=== PATIENT | male | born 1995 | race Caucasian/White ===

== ENCOUNTER 2019-09-23 18:09 | Inpatient (IN) | payer BC, OTHER ==
[~2019-09-23] VITALS: Ht 182.9 cm; Wt 83.5 kg
[2019-09-23] MEDS ORDERED: ONDANSETRON HCL 4MG/2ML INJ IV STA (19:47)
[2019-09-23] MEDS ORDERED: SODIUM CHLORIDE 0.9% 1000ML BAG (SEPSIS BOLUS) IV ONE (20:00)
[2019-09-23 20:03] LABS: HEMATOCRIT. 52.2 % (42.0-52.0); HEMOGLOBIN. 17.5 g/dL (14.0-18.0); MEAN CORPUSCULAR HEMOGLOBIN 32.1 pg (28.0-32.0); MEAN CORPUSCULAR VOLUME 95.8 fL (80.0-94.0); MEAN PLATELET VOLUME 8.4 fl (7.4-10.4); PLATELET 352 x1000/uL (130-400); RED BLOOD CELL COUNT 5.45 mill/uL (4.7-6.1); RED CELL DISTRIBUTION WIDTH 12.4 % (11.6-14.6)
[2019-09-23 20:08] LABS: CHLORIDE 99 mEq/L (98-107)
[2019-09-23 20:11] LABS: ETHANOL BLOOD < 10 mg/dL; INR 1.1; PROTHROMBIN TIME 10.8 sec (9.6-11.0)
[2019-09-23 20:12] LABS: AMYLASE 207 IU/L (25-115)
[2019-09-23 20:18] LABS: PLATELET ESTIMATE NORMAL
[2019-09-23 20:19] LABS: BETA HYDROXYBUTYRATE 7.3 mMol/L (0.0-0.3)
[2019-09-23 20:27] LABS: BG BASE EXCESS -23.4 mmol/L (-2.0-2.0); BG DEOXYHEMOGLOBIN 2.2 % (0.0-5.0); BG FRACTION INSPIRED OXYGEN 21; BG HCO3 ACT 4.6 mmol/L (22.0-26.0); BG METHEMOGLOBIN 0.8 % (0.0-1.5); BG OXYGEN SATURATION 97.8 % (92.0-98.5); BG PCO2 16.1 mmHg (35.0-45.0); BG SAMPLE SITE RIGHT RADIAL; BG TOTAL HEMOGLOBIN 18.4 g/dL (12.0-18.0); BG VENT MODE NASAL CANNULA
[2019-09-23] MEDS ORDERED: INSULIN REGULAR (DRIP) 100 UNITS in SODIUM CHLORIDE 0.9% 100 ML IV NR (20:55)
[2019-09-23] MEDS ORDERED: SODIUM CHLORIDE 0.9% 1,000 ML IV STA (20:55)
[2019-09-23 20:59] LABS: CLARITY URINE CLEAR (CLEAR); COLOR URINE YELLOW (YELLOW); KETONES URINE 4+ (NEGATIVE); LEUKOCYTE ESTERASE URINE NEGATIVE (NEGATIVE); NITRITE URINE NEGATIVE (NEGATIVE); OCCULT BLOOD URINE NEGATIVE (NEGATIVE); PROTEIN URINE 1+ (NEGATIVE); SPECIFIC GRAVITY URINE 1.029 (1.005-1.030); UROBILINOGEN URINE 0.2 E.U./dL (0.2-1.0)
[2019-09-23] MEDS ORDERED: LEVOFLOXACIN 500MG PREMIX 100 ML IV ONE (21:00)
[2019-09-23 21:13] LABS: *AMPHETAMINES SCREEN URINE NEGATIVE (NEGATIVE); *BARBITURATES SCREEN URINE NEGATIVE (NEGATIVE); *BENZODIAZEPINES SCREEN URINE NEGATIVE (NEGATIVE); *COCAINE SCREEN URINE NEGATIVE (NEGATIVE); METHADONE URINE SCREEN NEGATIVE (NEGATIVE); OPIATES URINE SCREEN NEGATIVE (NEGATIVE)
[2019-09-23 21:14] LABS: CANNABINOID URINE SCREEN NEGATIVE (NEGATIVE); PHENCYCLIDINE URINE SCREEN NEGATIVE (NEGATIVE)
[2019-09-23 22:44] LABS: CHLORIDE 110 mEq/L (98-107)
[2019-09-23] MEDS ORDERED: SODIUM CHLORIDE 0.9% 1,000 ML IV ONE (23:25)
[2019-09-24 01:05] LABS: CHLORIDE 116 mEq/L (98-107)
[2019-09-24 01:14] LABS: PHOSPHORUS 3.1 mg/dL (2.5-4.9)
[2019-09-24 02:58] LABS: CHLORIDE 115 mEq/L (98-107)
[2019-09-24] MEDS ORDERED: DEXT 5%/0.45% NACL KCL 20MEQ/L 1,000 ML IV ONE ×2 (03:00→12:45)
[2019-09-24 03:04] LABS: PHOSPHORUS 1.9 mg/dL (2.5-4.9)
[2019-09-24] MEDS ORDERED: ONDANSETRON HCL 4MG/2ML INJ IV PRN (12:15)
[2019-09-24] MEDS ORDERED: PANTOPRAZOLE SODIUM 40 MG/VIAL IV NR (12:15)
[2019-09-24] MEDS ORDERED: IPRATROPIUM/ALBUTEROL 0.5-3(2.5)MG/3ML NEB HHN PRN (12:15)
[2019-09-24] MEDS ORDERED: MORPHINE SULFATE 2 MG/ML CPJ (NOT FOR IM USE) IV PRN (12:15)
[2019-09-24] MEDS ORDERED: INSULIN REGULAR (DRIP) 100 UNITS in SODIUM CHLORIDE 0.9% 100 ML IV SCH (12:15)
[2019-09-24] MEDS: ACETAMINOPHEN 325MG TABLET PO PRN ×2 (14:02→20:40)
[2019-09-24] MEDS ORDERED: ENOXAPARIN 40MG/0.4ML SYR SUBCUT NR (14:30)
[2019-09-24 15:49] LABS: BASOPHILS % 0.3 % (0.0-2.0); HEMOGLOBIN. 14.5 g/dL (14.0-18.0); MEAN CORPUSCULAR HEMOGLOBIN 32.1 pg (28.0-32.0); MEAN CORPUSCULAR VOLUME 93.3 fL (80.0-94.0); MEAN PLATELET VOLUME 6.8 fl (7.4-10.4); MONOCYTES % 7.3 % (2.0-8.0); NEUTROPHILS % 83.4 % (40.0-76.0); PLATELET 246 x1000/uL (130-400); RED CELL DISTRIBUTION WIDTH 11.9 % (11.6-14.6)
[2019-09-24 15:54] LABS: CHLORIDE 112 mEq/L (98-107)
[2019-09-24 16:02] LABS: BETA HYDROXYBUTYRATE 4.4 mMol/L (0.0-0.3)
[2019-09-24] MEDS: SODIUM CHLORIDE 0.45% 1,000 ML IV SCH (18:41)
[2019-09-24] MEDS ORDERED: DEXTROSE 50% WATER 50ML SYRINGE IV PRN (19:15)
[2019-09-24] MEDS ORDERED: SODIUM BICARBONATE 8.4% 1 MEQ/ML 50ML SYR IV ONE (19:15)
[2019-09-24] MEDS: BLOOD SUGAR DIAGNOSTIC STRIP TEST SCH (21:00)
[2019-09-24] MEDS: INSULIN LISPRO 100 UNITS/ML SUBCUT SCH (21:36)
[2019-09-25] MEDS: SODIUM CHLORIDE 0.45% 1,000 ML IV SCH ×2 (05:25→23:35)
[2019-09-25] MEDS: INSULIN LISPRO 100 UNITS/ML SUBCUT SCH ×4 (08:38→21:01)
[2019-09-25 10:02] VITALS: BP 120/85
[2019-09-25] MEDS ORDERED: INFLUENZA VIRUS VACCINE(AFLURIA) 0.5ML SYR IM ONE (11:15)
[2019-09-25] MEDS: BLOOD SUGAR DIAGNOSTIC STRIP TEST SCH ×3 (11:50→21:03)
[2019-09-25 12:00] VITALS: BP 116/78
[2019-09-25 13:08] LABS: BASOPHILS % 0.2 % (0.0-2.0); HEMOGLOBIN. 15.1 g/dL (14.0-18.0); LYMPHOCYTES % 13.7 % (20.0-50.0); MEAN CORPUSCULAR VOLUME 95.1 fL (80.0-94.0); MEAN PLATELET VOLUME 7.1 fl (7.4-10.4); MONOCYTES % 6.1 % (2.0-8.0); PLATELET 287 x1000/uL (130-400); RED BLOOD CELL COUNT 4.73 mill/uL (4.7-6.1); RED CELL DISTRIBUTION WIDTH 12.4 % (11.6-14.6)
[2019-09-25 13:18] LABS: CHLORIDE 109 mEq/L (98-107)
[2019-09-25] MEDS ORDERED: SODIUM BICARBONATE 50 MEQ in SODIUM CHLORIDE 0.45% 1,000 ML IV SCH (13:45)
[2019-09-25 14:00] VITALS: BP 132/65
[2019-09-25] MEDS ORDERED: SODIUM BICARBONATE 8.4% 1 MEQ/ML 50ML SYR IV NR (14:30)
[2019-09-25] MEDS: ENOXAPARIN 40MG/0.4ML SYR SUBCUT SCH (19:11)
[2019-09-25 20:00] VITALS: BP 126/75
[2019-09-25] MEDS: INSULIN GLARGINE UD 100 UNITS/ML SYR SUBCUT SCH (21:02)
[2019-09-25 22:00] VITALS: BP 109/68
[2019-09-25 23:45] LABS: CHLORIDE 109 mEq/L (98-107)
[2019-09-25 23:53] LABS: BETA HYDROXYBUTYRATE 3.7 mMol/L (0.0-0.3)
[2019-09-26] VITALS (12 sets, daily range): BP systolic 98–125; BP diastolic 61–79
[2019-09-26] MEDS: BLOOD SUGAR DIAGNOSTIC STRIP TEST SCH ×4 (06:10→21:32)
[2019-09-26 07:15] LABS: CHLORIDE 109 mEq/L (98-107)
[2019-09-26 07:28] LABS: BASOPHILS % 0.4 % (0.0-2.0); EOSINOPHILS % 0.9 % (0.0-5.0); HEMATOCRIT. 36.7 % (42.0-52.0); HEMOGLOBIN. 13.2 g/dL (14.0-18.0); LYMPHOCYTES % 38.4 % (20.0-50.0); MEAN CORPUSCULAR VOLUME 91.9 fL (80.0-94.0); MONOCYTES % 11.8 % (2.0-8.0); NEUTROPHILS % 48.5 % (40.0-76.0); PLATELET 212 x1000/uL (130-400); RED BLOOD CELL COUNT 3.99 mill/uL (4.7-6.1); RED CELL DISTRIBUTION WIDTH 11.9 % (11.6-14.6)
[2019-09-26] MEDS: ENOXAPARIN 40MG/0.4ML SYR SUBCUT SCH (08:26)
[2019-09-26] MEDS: INSULIN LISPRO 100 UNITS/ML SUBCUT SCH ×4 (08:28→21:32)
[2019-09-26] MEDS ORDERED: POTASSIUM CHLORIDE 20MEQ TABLET SR PO SCH (09:00)
[2019-09-26] MEDS: INSULIN GLARGINE UD 100 UNITS/ML SYR SUBCUT SCH ×2 (10:14→21:31)
[2019-09-26] MEDS: SODIUM CHLORIDE 0.45% 1,000 ML IV SCH ×2 (10:18)
[2019-09-26 13:37] LABS: PHOSPHORUS 1.7 mg/dL (2.5-4.9)
[2019-09-26] MEDS ORDERED: POTASSIUM CHLORIDE 20MEQ TABLET SR PO NR (15:45)
[2019-09-26] MEDS ORDERED: MAGNESIUM 2 G PREMIX 50 ML IV NR (17:30)
[2019-09-26] MEDS ORDERED: SODIUM PHOS,M-BASIC-D-BASIC 30 MM in DEXT 5% WATER 500 ML IV NR (17:30)
[2019-09-27] VITALS: BP 120/81
[2019-09-27 02:00] VITALS: BP 112/67
[2019-09-27 04:00] VITALS: BP 109/70
[2019-09-27 05:30] VITALS: BP 110/75
[2019-09-27] MEDS: BLOOD SUGAR DIAGNOSTIC STRIP TEST SCH (05:45)
[2019-09-27 09:48] LABS: BG BASE EXCESS -8.2 mmol/L (-2.0-2.0); BG CARBOXYHEMOGLOBIN 0.5 % (0.5-1.5); BG DEOXYHEMOGLOBIN 2.1 % (0.0-5.0); BG FRACTION INSPIRED OXYGEN 21; BG HCO3 ACT 16.2 mmol/L (22.0-26.0); BG METHEMOGLOBIN 0.1 % (0.0-1.5); BG OXYGEN SATURATION 97.9 % (92.0-98.5); BG OXYHEMOGLOBIN 97.3 % (94.0-97.0); BG PCO2 30.5 mmHg (35.0-45.0); BG PH 7.344 (7.350-7.450); BG PO2 107.4 mmHg (75.0-100.0); BG SAMPLE SITE RIGHT RADIAL; BG TOTAL HEMOGLOBIN 13.8 g/dL (12.0-18.0); BG VENT MODE ROOM AIR
== END 2019-09-27 06:10 | disposition home or self-care (01) | DRG 639 ==
LOC: ER 18:09 → EDBEDREQTM 21:39 → EDBEDREQ 21:39 → EDBEDREQSVC 09-24 18:40 → EDBEDREQDT 09-24 18:40 → EDBEDREQTM 09-24 18:40 → 3WST 09-24 21:34 → ENRESERV 09-25 08:15
PROVIDERS: ADMIT Ophthalmology; ATTEND Ophthalmology
DX: E11.10 Type 2 diabetes mellitus with ketoacidosis without coma (principal); E83.42 Hypomagnesemia; E83.39 Other disorders of phosphorus metabolism; E87.6 Hypokalemia; E78.00 Pure hypercholesterolemia, unspecified; Z79.4 Long term (current) use of insulin
CPT/HCPCS: 36415; 36600; 71045; 80048; 80053; 80305; 80320; 81003; 82010; 82150; 82375; 82805; 82962; 83036; 83605; 83735; 84100; 84145; 84484; 85025; 90686; 93005; 99291; C9113; J1650; J1815; J1956; J2270; J2405; J3475; J3490; J7030; J7050; J7060; G0480

== ENCOUNTER 2021-08-16 23:03 | Inpatient (IN) | payer BC, OTHER ==
[~2021-08-16] VITALS: Ht 165.1 cm; Wt 72.6 kg
[2021-08-16] MEDS ORDERED: ONDANSETRON HCL 4MG/2ML INJ IV STA (23:12)
[2021-08-16] MEDS ORDERED: SODIUM CHLORIDE 0.9% 1,000 ML IV ONE (23:15)
[2021-08-16 23:53] LABS: BASOPHILS % 0.2 % (0.0-2.0); EOSINOPHILS % 0.1 % (0.0-5.0); HEMATOCRIT. 46.2 % (42.0-52.0); HEMOGLOBIN. 16.1 g/dL (14.0-18.0); LYMPHOCYTES % 8.3 % (20.0-50.0); MEAN CORPUSCULAR HEMOGLOBIN 32.7 pg (28.0-32.0); MEAN CORPUSCULAR VOLUME 94.2 fL (80.0-94.0); MEAN PLATELET VOLUME 7.8 fl (7.4-10.4); MONOCYTES % 3.9 % (2.0-8.0); NEUTROPHILS % 87.5 % (40.0-76.0); PLATELET 278 x1000/uL (130-400); RED BLOOD CELL COUNT 4.91 mill/uL (4.7-6.1); RED CELL DISTRIBUTION WIDTH 11.8 % (11.6-14.6)
[2021-08-17] LABS: CHLORIDE 104 mEq/L (98-107)
[2021-08-17 00:39] LABS: CLARITY URINE CLEAR (CLEAR); COLOR URINE YELLOW (YELLOW); KETONES URINE 4+ (NEGATIVE); LEUKOCYTE ESTERASE URINE NEGATIVE (NEGATIVE); NITRITE URINE NEGATIVE (NEGATIVE); OCCULT BLOOD URINE NEGATIVE (NEGATIVE); PROTEIN URINE TRACE (NEGATIVE); SPECIFIC GRAVITY URINE 1.029 (1.005-1.030); UROBILINOGEN URINE 0.2 E.U./dL (0.2-1.0)
[2021-08-17] MEDS ORDERED: POTASSIUM CHLORIDE 20MEQ TABLET SR PO SCH (00:45)
[2021-08-17] MEDS ORDERED: ACETAMINOPHEN 325MG TABLET PO SCH (00:45)
[2021-08-17] MEDS ORDERED: INSULIN REGULAR (DRIP) 100 UNITS in SODIUM CHLORIDE 0.9% 99 ML IV SCH (01:00)
[2021-08-17 01:12] LABS: BG BASE EXCESS -19.4 mmol/L (-2.0-2.0); BG CARBOXYHEMOGLOBIN 0.7 % (0.5-1.5); BG DEOXYHEMOGLOBIN 23.7 % (0.0-5.0); BG HCO3 ACT 8.5 mmol/L (22.0-26.0); BG METHEMOGLOBIN 0.3 % (0.0-1.5); BG OXYGEN SATURATION 76.1 % (92.0-98.5); BG OXYHEMOGLOBIN 75.3 % (94.0-97.0); BG PCO2 27.1 mmHg (35.0-45.0); BG PH 7.114 (7.350-7.450); BG PO2 45.6 mmHg (75.0-100.0); BG VENT MODE ROOM AIR
[2021-08-17] MEDS ORDERED: SODIUM CHLORIDE 0.9% 1,000 ML IV ONE ×2 (02:30)
[2021-08-17] MEDS ORDERED: ONDANSETRON HCL 4MG/2ML INJ IV ONE (02:30)
[2021-08-17 03:03] LABS: PHOSPHORUS 3.2 mg/dL (2.5-4.9)
[2021-08-17 04:19] LABS: CHLORIDE 113 mEq/L (98-107)
[2021-08-17 07:05] LABS: CHLORIDE 113 mEq/L (98-107)
[2021-08-17] MEDS: SODIUM CHLORIDE 0.45% 1,000 ML IV SCH ×3 (07:30→21:46)
[2021-08-17] MEDS ORDERED: MAGNESIUM/ALUMINUM HYDROXIDE/SIMETHICONE 30ML UDC PO PRN (07:30)
[2021-08-17] MEDS ORDERED: IPRATROPIUM/ALBUTEROL 0.5-3(2.5)MG/3ML NEB HHN PRN (07:30)
[2021-08-17] MEDS ORDERED: DIPHENHYDRAMINE 50MG/ML VIAL IV PRN (07:30)
[2021-08-17] MEDS ORDERED: CLONIDINE 0.1MG TABLET PO PRN (07:30)
[2021-08-17] MEDS ORDERED: HYDRALAZINE 20MG/ML VIAL IV PRN (07:30)
[2021-08-17] MEDS ORDERED: LORAZEPAM 2MG/ML CPJ IV PRN (07:30)
[2021-08-17] MEDS ORDERED: MORPHINE SULFATE 2 MG/ML CPJ (NOT FOR IM USE) IV PRN (07:30)
[2021-08-17] MEDS ORDERED: GUAIFENESIN 200MG/10ML SUGAR FREE UDC PO PRN (07:30)
[2021-08-17] MEDS ORDERED: DOCUSATE SODIUM 100MG CAPSULE PO PRN (07:30)
[2021-08-17] MEDS ORDERED: NALOXONE HCL 0.4MG/ML VIAL IV PRN (08:00)
[2021-08-17] MEDS ORDERED: DEXTROSE 50% WATER 50ML SYRINGE IV PRN (09:00)
[2021-08-17 09:17] LABS: CHLORIDE 116 mEq/L (98-107)
[2021-08-17 10:25] LABS: BG BASE EXCESS -17.1 mmol/L (-2.0-2.0); BG CARBOXYHEMOGLOBIN 0.4 % (0.5-1.5); BG DEOXYHEMOGLOBIN 1.8 % (0.0-5.0); BG FRACTION INSPIRED OXYGEN 21; BG METHEMOGLOBIN 0.4 % (0.0-1.5); BG OXYGEN SATURATION 98.2 % (92.0-98.5); BG OXYHEMOGLOBIN 97.4 % (94.0-97.0); BG PCO2 23.6 mmHg (35.0-45.0); BG PH 7.197 (7.350-7.450); BG PO2 111.4 mmHg (75.0-100.0); BG SAMPLE SITE RIGHT BRACHIAL; BG TOTAL HEMOGLOBIN 15.6 g/dL (12.0-18.0); BG VENT MODE ROOM AIR
[2021-08-17] MEDS: ONDANSETRON HCL 4MG/2ML INJ IV PRN ×2 (10:44→18:44)
[2021-08-17] MEDS: ENOXAPARIN 40MG/0.4ML SYR SUBCUT SCH (10:44)
[2021-08-17] MEDS: ACETAMINOPHEN 325MG TABLET PO PRN (10:44)
[2021-08-17] MEDS: INSULIN GLARGINE UD 100 UNITS/ML SYR SUBCUT SCH (10:59)
[2021-08-17 11:04] LABS: CHLORIDE 112 mEq/L (98-107)
[2021-08-17] MEDS ORDERED: SODIUM BICARBONATE 8.4% 1 MEQ/ML 50ML SYR IV NR (11:15)
[2021-08-17] MEDS: BLOOD SUGAR DIAGNOSTIC STRIP TEST SCH ×3 (12:20→21:45)
[2021-08-17] MEDS: INSULIN LISPRO 100 UNITS/ML SUBCUT SCH ×3 (12:45→21:45)
[2021-08-17 13:00] VITALS: BP 112/69
[2021-08-17 13:04] LABS: CHLORIDE 109 mEq/L (98-107)
[2021-08-17 15:19] LABS: BG BASE EXCESS -16.2 mmol/L (-2.0-2.0); BG CARBOXYHEMOGLOBIN 0.1 % (0.5-1.5); BG DEOXYHEMOGLOBIN 1.7 % (0.0-5.0); BG FRACTION INSPIRED OXYGEN 21; BG HCO3 ACT 9.1 mmol/L (22.0-26.0); BG METHEMOGLOBIN 0.3 % (0.0-1.5); BG OXYGEN SATURATION 98.3 % (92.0-98.5); BG OXYHEMOGLOBIN 97.9 % (94.0-97.0); BG PCO2 22.3 mmHg (35.0-45.0); BG PH 7.229 (7.350-7.450); BG PO2 120.9 mmHg (75.0-100.0); BG SAMPLE SITE RIGHT BRACHIAL; BG TOTAL HEMOGLOBIN 16.4 g/dL (12.0-18.0); BG VENT MODE ROOM AIR
[2021-08-17 16:00] VITALS: BP 114/63
[2021-08-17] MEDS: SODIUM CHLORIDE 0.9% INJ 3ML FLUSH IVF SCH ×2 (17:45→21:52)
[2021-08-17 22:46] VITALS: BP 131/87
[2021-08-18 01:35] VITALS: BP 104/67
[2021-08-18] MEDS: ONDANSETRON HCL 4MG/2ML INJ IV PRN ×3 (02:48→23:37)
[2021-08-18 03:10] VITALS: BP 126/79
[2021-08-18] MEDS: SODIUM CHLORIDE 0.45% 1,000 ML IV SCH ×4 (04:02→20:54)
[2021-08-18] MEDS: SODIUM CHLORIDE 0.9% INJ 3ML FLUSH IVF SCH ×3 (05:26→21:00)
[2021-08-18 06:08] LABS: BASOPHILS % 0.1 % (0.0-2.0); HEMATOCRIT. 52.3 % (42.0-52.0); HEMOGLOBIN. 17.5 g/dL (14.0-18.0); MEAN CORPUSCULAR HEMOGLOBIN 32.4 pg (28.0-32.0); MEAN CORPUSCULAR VOLUME 96.7 fL (80.0-94.0); MEAN PLATELET VOLUME 8.1 fl (7.4-10.4); MONOCYTES % 5.2 % (2.0-8.0); NEUTROPHILS % 86.7 % (40.0-76.0); PLATELET 292 x1000/uL (130-400); RED CELL DISTRIBUTION WIDTH 12.4 % (11.6-14.6)
[2021-08-18 06:16] LABS: CHLORIDE 113 mEq/L (98-107)
[2021-08-18] MEDS: BLOOD SUGAR DIAGNOSTIC STRIP TEST SCH ×4 (06:43→20:59)
[2021-08-18] MEDS: INSULIN LISPRO 100 UNITS/ML SUBCUT SCH ×4 (07:50→20:58)
[2021-08-18 08:00] VITALS: BP 146/86
[2021-08-18] MEDS: HYDROCODONE/ACETAMINOPHEN 5/325MG TABLET PO PRN (10:42)
[2021-08-18] MEDS: ENOXAPARIN 40MG/0.4ML SYR SUBCUT SCH (10:42)
[2021-08-18] MEDS: INSULIN GLARGINE UD 100 UNITS/ML SYR SUBCUT SCH (10:43)
[2021-08-18 12:00] VITALS: BP 118/74
[2021-08-18] MEDS ORDERED: INSULIN GLARGINE UD 100 UNITS/ML SYR SUBCUT NR (13:00)
[2021-08-18 16:00] VITALS: BP 120/69
[2021-08-18 20:00] VITALS: BP 130/77
[2021-08-18] MEDS: ACETAMINOPHEN 325MG TABLET PO PRN (20:55)
[2021-08-19] VITALS: BP 124/75
[2021-08-19 05:00] VITALS: BP 114/81
[2021-08-19] MEDS: SODIUM CHLORIDE 0.9% INJ 3ML FLUSH IVF SCH ×3 (05:25→22:34)
[2021-08-19] MEDS: SODIUM CHLORIDE 0.45% 1,000 ML IV SCH ×3 (06:10→22:33)
[2021-08-19] MEDS: BLOOD SUGAR DIAGNOSTIC STRIP TEST SCH ×4 (06:20→21:56)
[2021-08-19 08:00] VITALS: BP 130/86
[2021-08-19] MEDS: INSULIN LISPRO 100 UNITS/ML SUBCUT SCH ×4 (08:04→22:36)
[2021-08-19] MEDS: ENOXAPARIN 40MG/0.4ML SYR SUBCUT SCH (08:18)
[2021-08-19] MEDS: HYDROCODONE/ACETAMINOPHEN 5/325MG TABLET PO PRN (08:18)
[2021-08-19] MEDS: ONDANSETRON HCL 4MG/2ML INJ IV PRN (08:18)
[2021-08-19] MEDS ORDERED: INSULIN GLARGINE UD 100 UNITS/ML SYR SUBCUT SCH (10:00)
[2021-08-19 12:00] VITALS: BP 125/80
[2021-08-19] MEDS: INSULIN GLARGINE UD 100 UNITS/ML SYR SUBCUT SCH (12:06)
[2021-08-19] MEDS: METOCLOPRAMIDE HCL 10MG/2ML VIAL IV SCH ×2 (12:06→17:14)
[2021-08-19 13:15] LABS: BASOPHILS % 0.2 % (0.0-2.0); HEMATOCRIT. 48.1 % (42.0-52.0); HEMOGLOBIN. 16.3 g/dL (14.0-18.0); LYMPHOCYTES % 12.2 % (20.0-50.0); MEAN CORPUSCULAR HEMOGLOBIN 32.5 pg (28.0-32.0); MEAN PLATELET VOLUME 8.2 fl (7.4-10.4); MONOCYTES % 6.4 % (2.0-8.0); NEUTROPHILS % 81.2 % (40.0-76.0); PLATELET 253 x1000/uL (130-400); RED BLOOD CELL COUNT 5.01 mill/uL (4.7-6.1); RED CELL DISTRIBUTION WIDTH 12.2 % (11.6-14.6)
[2021-08-19 13:21] LABS: CHLORIDE 107 mEq/L (98-107)
[2021-08-19] MEDS ORDERED: ONDANSETRON HCL 4MG/2ML INJ IV PRN (13:30)
[2021-08-19 16:00] VITALS: BP 118/80
[2021-08-19 20:00] VITALS: BP 113/73
[2021-08-20] VITALS: BP 109/65
[2021-08-20] MEDS: METOCLOPRAMIDE HCL 10MG/2ML VIAL IV SCH ×3 (00:42→13:47)
[2021-08-20] MEDS: SODIUM CHLORIDE 0.45% 1,000 ML IV SCH ×3 (02:42→15:30)
[2021-08-20 04:00] VITALS: BP 113/72
[2021-08-20] MEDS: BLOOD SUGAR DIAGNOSTIC STRIP TEST SCH ×3 (06:34→17:20)
[2021-08-20] MEDS: SODIUM CHLORIDE 0.9% INJ 3ML FLUSH IVF SCH ×2 (06:34→13:48)
[2021-08-20 08:00] VITALS: BP 103/61
[2021-08-20] MEDS: ENOXAPARIN 40MG/0.4ML SYR SUBCUT SCH (09:14)
[2021-08-20] MEDS: INSULIN LISPRO 100 UNITS/ML SUBCUT SCH ×2 (09:15→13:48)
[2021-08-20 12:00] VITALS: BP 121/80
[2021-08-20] MEDS: INSULIN GLARGINE UD 100 UNITS/ML SYR SUBCUT SCH (12:10)
[2021-08-20 16:00] VITALS: BP 115/76
[2021-08-20 17:05] VITALS: BP 115/76
== END 2021-08-20 17:45 | disposition home or self-care (01) | DRG 638 ==
LOC: ER 23:03 → MICUSO 08-17 02:32 → SUPCPDRO 08-17 07:21 → ENRESERV 08-17 10:54 → 6WST 08-17 14:36
PROVIDERS: ADMIT Internal Medicine; ATTEND Internal Medicine
DX: E10.10 Type 1 diabetes mellitus with ketoacidosis without coma (principal); E87.1 Hypo-osmolality and hyponatremia; R65.10 Systemic inflammatory response syndrome (SIRS) of non-infectious origin without acute organ dysfunction; E86.0 Dehydration; E78.00 Pure hypercholesterolemia, unspecified; E78.5 Hyperlipidemia, unspecified; Z79.4 Long term (current) use of insulin; Z90.49 Acquired absence of other specified parts of digestive tract
CPT/HCPCS: 36415; 36600; 80048; 80053; 81003; 82010; 82375; 82805; 82962; 83036; 83605; 83735; 84100; 84443; 85025; 93005; 99291; J0360; J1650; J1815; J2270; J2405; J2765; J3490; J7030; J7050